=== PATIENT | female | born 1970 | race Caucasian/White ===

== ENCOUNTER 2019-03-25 13:19 | Emergency (ER) | payer MEDICARE, MEDICAID, SELFPAY ==
[2019-03-25 13:20] VITALS: BP 124/72; PULSE 97; RESP 18; TEMP 36.4; O2SAT 98; BMI 17.8
--- NOTE | 2019-03-25 13:32 | ED.VIS.GEN ---
History of Present Illness Chief Complaint: Back Informant: Patient Onset: Days Current Severity: Mild Narrative: The patient has history of lumbar back pain related to lumbar disc disease she has gone physical therapy lumbar back injections over the years to control her symptoms that have been generally well controlled until a few days ago when she indicates she sneezed or coughed and jerked her back and since then she is been having a discomfort involving the left lateral paralumbar musculature. She denies numbness weakness or paresthesias no bowel or bladder complaints she was told at one time that she may require lumbar back surgery but it could be risky causing damage to her health and showed she does not wish to be considered for lumbar back surgery, no fever no cough no other complaints Past Medical History - Allergies and Home Meds Allergies/Adverse Reactions: Allergies codeine Allergy (Verified 10/24/16 17:24) Shortness of breath gabapentin [From Neurontin] Allergy (Verified 10/24/16 17:24) Shortness of breath ibuprofen [From Advil] Allergy (Verified 10/24/16 17:24) Shortness of breath latex Allergy (Verified 10/24/16 17:24) Shortness of breath NSAIDS (Non-Steroidal Anti-Inflamma Allergy (Verified 10/24/16 17:24) Shortness of breath prednisone Allergy (Verified 10/24/16 17:24) Shortness of breath Primary Care Physician: Shanice Glaser MD [Primary Care Provider] - Past Medical History: - - As above Smoking Status: Current every day smoker Review of Systems General: Reports: - - Back pain only. Denies: Chills, Fever, Sweats Eyes: Denies: Visual changes - bilaterally, Diplopia ENT: Denies: Rhinorrhea, Sore throat Cardiovascular: Denies: Chest pain, Palpitations Respiratory: Denies: Dyspnea, Cough, Dyspnea on exertion Gastrointestinal: Denies: Abdominal pain, Nausea, Vomiting, Diarrhea, Melena, Hematochezia Genitourinary: Denies: Dysuria, Hematuria, Frequency Musculoskeletal: Denies: Back pain, Extremity Pain Skin: Denies: Rash, Wounds Neurological: Denies: Headache, Weakness, Numbness Physical Exam Vital Signs/Narrative: Vital Signs Temp Pulse Resp BP Pulse Ox 03/25/19 13:20 97.6 F L 97 18 124/72 H 98 General: Well nourished, Well developed, No Acute Distress Head: Normocephalic, Atraumatic Eyes: Perrl, EOMI ENT: Moist mucous membranes, No rhinorrhea Neck: Supple, Nontender Cardiovascular: Regular rate, Regular rhythm, No murmurs Respiratory: No distress, CTA bilaterally, Chest nontender Abdomen: Soft, Nontender, Nondistended, Normal bowel sounds Back: Nontender, Normal Inspection, - - Patient is a vague pain to the left paralumbar back musculature there is no midline pain there is no pain to the thoracic or C-spine she able to stand and walk without difficulty she can heel and toe raise and knee bend without difficulty there is no signs of cauda equina numbness weakness paresthesias there is no signs of neurovascular abnormality. Negative for: CVA tenderness, Spinal tenderness Extremities: Nontender, No edema Skin: Normal color, No rash Neurological: Alert, Oriented x3, Cranial nerves II-XII grossly intact, Normal Strength, Normal Sensation Psychological: Normal affect, Normal Mood Diagnostic/Tx/Re-eval - Medical Decision Making Given all the above we had a long conversation she indicates that when she has had this in the past Flexeril has helped she has multiple allergies and the only pain management she can take is Tylenol at this time the plan will be to start her on Flexeril she is [id number] Tylenol and follow-up with your outpatient providers for further management options and return for change in symptoms Home stable Final impression Left paralumbar back pain ED Disposition - Plan for ED Patient: Diagnosis: Lumbar back pain Instructions: BACK SPASM, No Trauma, Back Sprain/Strain Prescriptions: cycloBENZAPRine HCl [Flexeril] 10 mg PO TID PRN #20 tab PRN Reason: Muscle Spasm Prescription Printed Referrals: Shanice Glaser MD [Primary Care Provider] -
[2019-03-25 13:43] VITALS: RESP 16
== END 2019-03-25 13:55 | disposition home or self-care (01) ==
LOC: ED 13:51
PROVIDERS: Emergency Provider Emergency Medicine; Family Provider Internal Medicine; PCP Internal Medicine
DX: M54.5 Low back pain (principal); F17.200 Nicotine dependence, unspecified, uncomplicated
CPT/HCPCS: 99282

== ENCOUNTER 2022-05-27 17:19 | Outpatient (RCR) | payer MEDICARE, MEDICAID, SELFPAY ==
--- NOTE | 2022-05-28 08:42 | HP.OTEVAL ---
Patient's Visit Information JAYY GIVENS is a 52 year old F, referred to Occupational Therapy by Dr. Jovani Carballo MD, with a diagnosis of left IF mallet finger. Date of Evaluation: 05/27/22 Occupational Therapist: Blanche Blanca, LETICIAR/L, CHT - Subjective This 52 year arrives to OT with dx of left IF mallet finger- DOI about 8 weeks ago- states while pushing in a cleaning cloth in a Swiffer cleaning broom she felt a pop. pt states she started to get some pain at her PIPJ and decided to seek Dr. torres. Pt states she would like to increase the finger position so her finger tip is not so bent- pt states this does limit her ind. with ADls and IADls at this time. - Pain left IF 2 Pain Intensity Range: 3 - ROM DIP: right IF -10/55 left -25/55 ROM Comments: pt demo with positive mallet finger - Strength Strength Comments: will test later date - Sensation Sensation Comments: denies - Quick DASH-Disab of Arm,Shoulder& Hand Quick DASH Score: 43.1800 - Goals Goal:100% adherence to protocol: Yes Comment: mallet finger Goal:ROM equal to unaffected hand: Yes Comment: left DIP ext -5* or less Goal:No pain with affected hand use: Yes Goal:Full use of affected hand in daily activities including: Yes Comment: orthosis use Other Goal: pt will demo understanding of orthosis use for next 6-8 weeks by end of 1st session. pt will demo understanding of skin checks and change orthosis as to not compromise integrity of repair by end of 1st session. - Rehabilitation General Assessment: pt arrives possible 8 weeks from [facility] in need of skilled OT services2-4 visits to [facility]. custom orthosis (mallet finger). Today therapist ed. pt on custom orthosis use- use of Velcro and paper tape to increase stability of orthosis- pt going to try the Velcro strapping first- therapist ed. pt on proper edgardo, to change orthosis and skin care- therapist also ed. pt on PIP ROM with orthosis. pt demo understanding and agree to POC. Rehabilitation Potential: Questionable - Anticipated Interventions A/AAROM/PROM, Orthoses, Education re Diagnosis - Visit Plan Frequency: Every Other Week Duration: 6 Weeks General Plan: orthosis for 6 weeks. PIP ROM ex to prevent hyper ext at PIP TEXT: Thank you for the opportunity to evaluate your patient. For Medicare and Medicare HMO plans, please review the plan of care and approve it. It will need to be FAXED BACK to us at [phone] for Medicare purposes. Please let me know if there are questions or concerns regarding this plan of care. Physician Signature: Date:
--- NOTE | 2022-07-24 09:51 | HP.OT.NRP ---
JAYY GIVENS was seen in my office for initial evaluation on 05/27/22. The following Plan of Care was established for this patient: Initial Frequency: Every Other Week Initial Duration: 6 Weeks Anticipated Interventions: A/AAROM/PROM, Orthoses, Education re Diagnosis This patient was last seen in our office 05/27/22. Pertinent comments regarding their Occupational therapy will appear below: pt see for inital eval only- did not return for follow up visit and due to time lapse in services pt d/c. At this point I will be discontinuing this patient from occupational therapy. I would be happy to see this patient again in the future if found appropriate by the physician. Thank you! Blanche Blanca, OTR/L, CHT
== END 2022-05-27 19:00 | disposition home or self-care (01) ==
LOC: OT 17:19
PROVIDERS: PCP Internal Medicine; Referring Provider Orthopaedic Surgery; Visit Provider Orthopaedic Surgery
DX: M20.012 Mallet finger of left finger(s) (principal)
CPT/HCPCS: 97166

== ENCOUNTER 2023-10-19 16:28 | Emergency (ER) | payer MEDICARE, MEDICAID, SELFPAY ==
[2023-10-19 16:29] VITALS: BP 118/69; PULSE 83; RESP 18; TEMP 36.4; O2SAT 99; BMI 19.3
--- NOTE | 2023-10-19 17:11 | EKG12_ITS ---
Test Reason : SOB Blood Pressure : / mmHG Vent. Rate : 079 BPM Atrial Rate : 079 BPM P-R Int : 136 ms QRS Dur : 080 ms QT Int : 374 ms P-R-T Axes : 094 076 069 degrees QTc Int : 428 ms Normal sinus rhythm Normal ECG Confirmed by ZOE ANDRES MD ([id number]), sports editor KYLE COUGHLIN ([id number]) on 10/20/2023 9:23:18 AM Referred By: MIRIAM Confirmed By:ZOE ANDRES MD
--- NOTE | 2023-10-19 17:19 | ED.VIS.DYS ---
HPI History of Present Illness Chief Complaint: Shortness of Breath Narrative Narrative: 53-year-old female with history of anxiety on buspirone 15 mg p.o. 3 times daily presenting with some chest tightness and shortness of breath which started this morning at about 12 to 12:30 AM. Patient states she did albuterol treatment and would like to see about an hour and a half later. She states she woke up again and feeling like she is anxious. She states that she cannot. She complains of some mild chest tightness. Denies any cardiac history. Patient denies fever, chills, sweats. Patient denies risk factors for DVT/PE. No history. PE Risk Factors: Negative for Cancer, OCP + Smoking + > 35, Prior DVT or PE, Recent immobilization, Recent surgery or Recent travel [facility] Home Medications budesonide-formoterol HFA 160 mcg-4.5 mcg/actuation aerosol inhaler 1 inhaler inhalation DAILY 03/25/19 [History Last Taken Unknown] buspirone 15 mg tablet 15 mg PO TID 03/25/19 [History Last Taken Unknown] cyclobenzaprine 10 mg tablet 10 mg PO TID PRN Muscle Spasm #20 tabs 03/25/19 [Rx Last Taken Unknown] Allergy/AdvReac Type Severity Reaction Status Date / Time fluticasone Allergy Severe Anaphylaxis Verified 10/19/23 16:34 [From Advair Diskus] salmeterol Allergy Severe Anaphylaxis Verified 10/19/23 16:34 [From Advair Diskus] codeine Allergy Shortness Verified 10/19/23 16:34 of breath gabapentin [From Neurontin] Allergy Shortness Verified 10/19/23 16:34 of breath ibuprofen [From Advil] Allergy Shortness Verified 10/19/23 16:34 of breath latex Allergy Shortness Verified 10/19/23 16:34 of breath NSAIDS (Non-Steroidal Allergy Shortness Verified 10/19/23 16:34 Anti-Inflamma of breath prednisone Allergy Shortness Verified 10/19/23 16:34 of breath Social History Smoking Status: Current every day smoker tobacco type: cigarettes ROS ROS ED Constitutional Constitutional ED: Denies chills, fever(s) or sweats Eyes Eyes: Denies blurry vision or change in vision ENT ENT ED: Denies ear pain or sore throat Cardiovascular Cardiovascular: Reports chest pain; Denies palpitations or racing heartbeat Respiratory/Chest Respiratory/Chest: Reports dyspnea; Denies cough or sputum Gastrointestinal Gastrointestinal: Denies abdominal pain, constipation, diarrhea, nausea or vomiting Genitourinary Genitourinary ED: Denies dysuria, hematuria or urinary frequency Musculoskeletal Musculoskeletal: Denies arthralgias, myalgias or neck pain Integumentary Denies abscess, Abrasions or rash Neurologic Neurologic: Denies headache(s), paresthesias or weakness Psychiatric Psychiatric: Denies anxiety, depression, suicidal ideation or suicidal thoughts Endocrine Endocrinology: Denies polydipsia or polyuria EXAM Physical Exam Const Vital Signs: 10/19/23 16:29 10/19/23 16:29 10/19/23 17:34 Temperature 97.6 F L Temperature Source Temporal Pulse Rate 83 Respiratory Rate 18 Respiratory Effort Normal Non-Labored Respiratory Depth Normal Respiratory Pattern Normal Blood Pressure 118/69 Blood Pressure Mean 85 Pulse Ox 99 Oxygen Delivery Method Room Air Room Air Room Air 10/19/23 17:34 10/19/23 18:00 10/19/23 18:46 Temperature 97.4 F L Temperature Source Pulse Rate 80 81 75 Respiratory Rate 20 H 16 18 Respiratory Effort Respiratory Depth Respiratory Pattern Blood Pressure 118/73 114/63 104/83 H Blood Pressure Mean 88 80 90 Pulse Ox 99 100 99 Oxygen Delivery Method Room Air Room Air Positive well nourished General Appearance ED: NAD; Negative for pallor HEENT Reports moist mucous membranes Eyes PERRL and EOMs intact bilaterally Neck no lymphadenopathy Resp normal respiratory effort Auscultation: Negative for rales, rhonchi or wheezes Cardio regular rate and regular rhythm GI non-tender and non-distended Neuro oriented x3 and CN's II-XII intact bilaterally Sensorium / Orientation: alert Motor Exam: strength 5/5 throughout Psych mental status grossly normal Attitude: No agitated Mood & Affect: Negative for anxious or tearful Skin General Skin Exam: Negative for jaundice or pallor MDM MDM MDM Narrative Medical decision making narrative: Patient presenting with shortness of breath and chest tightness. She initially thought it was anxiety but is unable to take it. Patient with no cardiac history. Differential includes ACS, pneumonia, anxiety, dehydration, anemia, electrolyte normalities, COPD exacerbation. Patient does state that she was put back on her budesonide formoterol inhaler about 2 weeks ago but states she had been on this in the past. She has been taking this twice a day. CBC shows no leukocytosis with a white blood cell count of 6.0. Hemoglobin 12.9. Platelets 214. BMP shows normal renal function electrolytes. High-sensitivity troponin is 5. EKG on my interpretation shows a sinus rhythm at 79 bpm without sign ischemic change or ectopy. Chest x-ray my interpretation is no acute process. Radiology interprets this and agrees. Given patient has had this discomfort since midnight and it has been about 18 hours and her troponin is negative but no believe she is a delta troponin. She is PERC negative. I have low suspicion for PE. Her labs are all that was normal. She does state that she is concerned it might be anxiety and I will have her follow-up with her PCP for this. She has buspirone that she takes on a regular basis. Impression: 1. Chest pain 2. History of anxiety Lab Data Labs: Laboratory Results - last 24 hr 10/19/23 17:30 WBC 6.0 RBC 3.93 L Hgb 12.9 Hct 39.8 MCV 101.3 H MCH 32.8 H MCHC 32.4 RDW Std Deviation 44.0 H RDW Coeff of Bruce 11.9 Plt Count 214 MPV 9.1 Immature Gran % (Auto) 0.300 Neut % (Auto) 66.2 Lymph % (Auto) 22.3 Isabella % (Auto) 7.9 Eos % (Auto) 2.8 Baso % (Auto) 0.5 Absolute Neuts (auto) 4.0 Absolute Lymphs (auto) 1.33 Nucleated RBC % 0 Sodium 135 L Potassium 3.7 Chloride 105 Carbon Dioxide 26.0 Anion Gap 4 L BUN 6 L Creatinine 0.79 Estim Creat Clear Calc 72.54 Est GFR (MDRD) Af Amer 97 Est GFR (MDRD) Non-Af 80 BUN/Creatinine Ratio 7.6 L Glucose 108 H Calcium 8.8 Troponin I High Sens 5 Radiography Diagnostic Testing: Clinical Impression(s) from Imaging Studies Chest X-Ray 10/19/23 17:45 IMPRESSION: No radiographic evidence of acute cardiopulmonary disease. Electronically Signed: Kaiser Loera MD at 18:15 EDT , Discharge Plan Triage Chief Complaint: Shortness of Breath ED Provider: Willard Bonilla Dx/Rx/DC Orders Instructions: ED Anxiety Reaction, ED Chest Pain, Noncardiac Prescriptions: No Action cyclobenzaprine 10 MG tablet 10 mg PO TID PRN (Reason: Muscle Spasm) Qty: 20 0RF buspirone 15 MG tablet 15 mg PO TID Patient Comments: TAKE 1 TABLET BY MOUTH THREE TIMES A DAY budesonide-formoterol 1 INHALER inhaler 1 inhaler inhalation DAILY Patient Comments: INHALE 1 PUFF BY MOUTH INSTRUCTED TWICE DAILY. Primary Care Provider: Shanice Glaser Referrals: Shanice Glaser MD [Primary Care Provider] - Disposition Disposition: Home, Self Care Discharge Date/Time: 10/19/23 18:49
[2023-10-19 17:34] VITALS: BP 118/73; PULSE 80; RESP 20; O2SAT 99
--- NOTE | 2023-10-19 17:45 | RAD_ITS ---
EXAM: XR CHEST, 1 VIEW CLINICAL INDICATION: chest pain TECHNIQUE: Frontal view of the chest. COMPARISON: No relevant prior studies available. FINDINGS: LUNGS AND PLEURAL SPACES: Unremarkable. No consolidation or edema. No pneumothorax. No effusion. HEART: Unremarkable. Cardiac silhouette not enlarged. MEDIASTINUM: Central airways and mediastinal contour are unremarkable. BONES/JOINTS: Unremarkable. No acute fracture. SOFT TISSUES: Unremarkable. RAD/Chest 1 View (Portable) IMPRESSION: No radiographic evidence of acute cardiopulmonary disease. Electronically Signed: Kaiser Loera MD at 18:15 EDT ,
[2023-10-19 17:46] LABS: Absolute Lymphocyte Count 1.33 X10^3/uL (0.83-4.51); Basophil# 0.03 X10^3/uL; Basophil% 0.5 % (0-1); Eosinophil# 0.17 X10^3/uL; Eosinophils% 2.8 % (0-5); Hematocrit 39.8 % (37-47); Hemoglobin 12.9 g/dL (12.0-15.0); Lymphocyte # 1.33 X10^3/ul (0.83-4.51); Lymphocyte % 22.3 % (19-41); Mean Corp Hgb Conc 32.4 g/dL (32-36); Mean Corpuscular Hgb 32.8 pg (27.0-32.0); Mean Corpuscular Volume 101.3 fL (81-99); Mean Platelet Vol. 9.1 fl (6.2-12.0); Monocyte# 0.47 X10^3/uL; Monocyte% 7.9 % (0-10); NRBC Flagged by Analyzer 0 % (0-5); Neutrophil # 3.95 X10^3/uL (2.7-7.7); Neutrophil % 66.2 % (47-70); Platelet Count 214 K/mm3 (150-450); RBC Distribution Width CV 11.9 % (11.6-14.6); Red Blood Count 3.93 M/mm3 (4.2-5.4)
[2023-10-19 18:00] VITALS: BP 114/63; PULSE 81; RESP 16; O2SAT 100
[2023-10-19 18:19] LABS: Anion Gap 4 (5-15); BUN 6 mg/dL (7-18); BUN/Creat Ratio 7.6 RATIO (10-20); Calcium,Total 8.8 mg/dL (8.5-10.1); Chloride 105 mmol/L (98-107); Creatinine, Serum 0.79 mg/dL (0.55-1.02); EST Glomerular Filtration Rate 80 mL/min (>60); Est Glom Filt Rate - Afr Amer 97 mL/min (>60); Estimated Creatinine Clearance 72.54 ml/min; Glucose 108 mg/dL (74-106); Potassium 3.7 mmol/L (3.5-5.1); Sodium Level 135 mmol/L (136-145); Troponin-I HS 5 pg/mL (3.0-54.0)
[2023-10-19 18:46] VITALS: BP 104/83; PULSE 75; RESP 18; TEMP 36.3; O2SAT 99
== END 2023-10-19 18:49 | disposition home or self-care (01) ==
PROVIDERS: Emergency Provider Student in an Organized Health Care Education/Training Program; PCP Internal Medicine; Visit Provider Student in an Organized Health Care Education/Training Program
DX: R07.9 Chest pain, unspecified (principal); F17.210 Nicotine dependence, cigarettes, uncomplicated; F41.9 Anxiety disorder, unspecified; R06.02 Shortness of breath; Z79.899 Other long term (current) drug therapy
CPT/HCPCS: 71045; 80048; 84484; 85025; 93005; 99283; A4216

== ENCOUNTER 2024-07-04 01:50 | Inpatient (IN) | payer MEDICARE, MEDICAID, SELFPAY ==
[2024-07-04] VITALS (9 sets, daily range): BP systolic 111–136; BP diastolic 65–79; PULSE 67–94; RESP 16–18; TEMP 36.4–36.9; O2SAT 94–99; BMI 18.1; BMI 16.6
--- NOTE | 2024-07-04 02:08 | CT_ITS ---
STUDY: CT ABDOMEN AND PELVIS WITH CONTRAST REASON FOR EXAM: Female, 54 years old patient with abdominal pain. RADIATION DOSAGE (If Supplied By Facility): CTDIvol = ( 8.77 ) mGy, DLP = ( 346.80 ) mGycm TECHNIQUE: Transaxial images were obtained from the dome of the diaphragm to the symphysis pubis without oral contrast. 100 mL of IV Isovue-370 was administered. Sagittal and coronal images were reconstructed. Individualized dose optimization techniques were used for this CT. COMPARISON: CT of abdomen and pelvis dated January 29, 2013. FINDINGS: There are small lucencies at the lung bases suggesting mild emphysema. There is no obvious airspace consolidation or pleural effusions. The visualized portions of the heart are within normal limits. Normal liver. Normal gallbladder and extrahepatic biliary system. Normal spleen. There are pancreatic calcifications in the distribution of the ducts consistent with chronic pancreatitis. Normal bilateral adrenal glands. Normal right kidney. Normal left kidney. Normal visualized stomach. There is no obvious dilated bowel, ascites or pneumoperitoneum. Small bowel has a grossly normal appearance. There is stool and/or gas visible in the colon. There is non-visualization of the appendix. There is multifocal atherosclerotic calcification of the abdominal aorta, without a demonstrated aneurysm. Normal inferior vena cava. Normal retroperitoneum. Normal urinary bladder. There is absence of the uterus consistent with a prior hysterectomy. Normal abdominal wall. There is degenerative disc disease at L4-5 and L5-S1 with disc space narrowing and vacuum disc phenomenon. CT/Abdomen/Pelvis W IV Cont ONLY IMPRESSION: 1. There is no CT evidence of acute intra-abdominal disease. 2. Sequela of chronic pancreatitis. Electronically Signed: Mary Roper MD at 4:10 EST ,
[2024-07-04] MEDS: 0.9% Normal Saline (1000mL) 1,000 ML 999 ML IV (02:17)
[2024-07-04] MEDS: Ondansetron 4 MG/2 ML Vial IV (02:17)
[2024-07-04 02:18] LABS: Absolute Lymphocyte Count 1.48 X10^3/uL (0.83-4.51); Absolute Neutrophil Count 5.8 X10^3/uL (2.0-7.7); Basophil# 0.03 X10^3/uL; Basophil% 0.4 % (0-1); Eosinophil# 0.39 X10^3/uL; Eosinophils% 4.8 % (0-5); Hematocrit 38.2 % (37-47); Hemoglobin 12.4 g/dL (12.0-15.0); Lymphocyte # 1.48 X10^3/ul (0.83-4.51); Mean Corp Hgb Conc 32.5 g/dL (32-36); Mean Corpuscular Hgb 33.7 pg (27.0-32.0); Mean Corpuscular Volume 103.8 fL (81-99); Mean Platelet Vol. 9.4 fl (6.2-12.0); Monocyte# 0.51 X10^3/uL; Monocyte% 6.2 % (0-10); NRBC Flagged by Analyzer 0 % (0-5); Neutrophil # 5.79 X10^3/uL (2.7-7.7); Neutrophil % 70.5 % (47-70); Platelet Count 214 K/mm3 (150-450); RBC Distribution Width CV 12.2 % (11.6-14.6); RBC Distribution Width SD 46.5 fl (35.1-43.9); Red Blood Count 3.68 M/mm3 (4.2-5.4); White Blood Count 8.2 K/mm3 (4.4-11.0)
[2024-07-04] MEDS: Mag Hydrox/Al Hydrox/Simeth 30 ML UDC PO (02:18)
[2024-07-04] MEDS: Lidocaine 2% Viscous15 ML UDC 15 ML PO (02:18)
--- NOTE | 2024-07-04 02:25 | EX.ED.DYSGE1 ---
HPI History of Present Illness Chief Complaint: Abd Pain Informant: patient and spouse/S.O. Narrative Narrative: Patient is a 54-year-old female with past medical history of COPD and previous surgical history of hysterectomy. She states that around 3 PM today she noticed some pain in the midepigastric region. She states this a cramping pain. She denies any associated nausea vomiting diarrhea or dysuria. She states no one else at home has been sick. She reports she has been waiting hours for the symptoms to improve/resolve but they have not done so and secondary to this she comes in for evaluation Patient denies any alcohol use she denies any history of daily NSAID use and denies any previous diagnosis of gallbladder dysfunction or gastritis. [facility] Medical History COPD (chronic obstructive pulmonary disease) Home Medications ?Medication ?Instructions ?Recorded ?Last Taken ?Type budesonide-formoterol HFA 160 1 inhaler inhalation DAILY 03/25/19 Unknown History mcg-4.5 mcg/actuation aerosol inhaler buspirone 15 mg tablet 15 mg PO TID 03/25/19 Unknown History albuterol sulfate 90 mcg/actuation 2 puff inhalation Q4H PRN PRN 07/04/24 Unknown History aerosol inhaler bronchospasm, sob, wheezing amitriptyline 25 mg tablet 25 mg PO QHS 07/04/24 Unknown History lorazepam 0.5 mg tablet 0.5 mg PO DAILY PRN anxiety 07/04/24 Unknown History Allergy/AdvReac Type Severity Reaction Status Date / Time fluticasone (From Advair Allergy Severe Anaphylaxis Verified 07/04/24 01:54 Diskus) salmeterol (From Advair Allergy Severe Anaphylaxis Verified 07/04/24 01:54 Diskus) codeine Allergy Shortness Verified 07/04/24 01:54 of breath gabapentin (From Neurontin) Allergy Shortness Verified 07/04/24 01:54 of breath ibuprofen (From Advil) Allergy Shortness Verified 07/04/24 01:54 of breath latex Allergy Shortness Verified 07/04/24 01:54 of breath NSAIDS (Non-Steroidal Allergy Shortness Verified 07/04/24 01:54 Anti-Inflamma of breath prednisone Allergy Shortness Verified 07/04/24 01:54 of breath Surgical History (Updated 07/04/24 @ 01:55 by Antionette Peres) H/O: hysterectomy Social History Smoking Status: Current every day smoker tobacco type: cigarettes ROS ROS ED Constitutional Constitutional ED: Denies chills or fever(s) Eyes Eyes: Denies blurry vision or change in vision ENT ENT ED: Denies sore throat Cardiovascular Cardiovascular: Denies chest pain Respiratory/Chest Respiratory/Chest: Denies cough or dyspnea Gastrointestinal Gastrointestinal: Reports abdominal pain; Denies constipation, diarrhea, nausea or vomiting Genitourinary Genitourinary ED: Denies dysuria or hematuria Musculoskeletal Musculoskeletal: Denies back pain Integumentary Denies rash Neurologic Neurologic: Denies headache(s) Psychiatric Psychiatric: Reports anxiety Hematologic/Lymphatic Hematologic/Lymphatic: Denies easy bleeding or easy bruising EXAM Physical Exam Const Vital Signs: 07/04/24 01:51 07/04/24 01:52 07/04/24 03:51 Temperature 97.6 F L Temperature Source Oral Pulse Rate 86 94 Respiratory Rate 16 18 Blood Pressure 136/68 H 122/79 H Blood Pressure Mean 90 93 Pulse Ox 98 94 Oxygen Delivery Method Room Air Room Air Room Air Positive well nourished and well developed General Appearance ED: well developed; Negative for pallor HEENT HEENT Narrative: No tongue or lip swelling no oral lesions no airway edema or compromise No secondary findings in the posterior pharynx to suggest Eyes PERRL and EOMs intact bilaterally General Eye ED: Negative for scleral icterus Neck supple Neck Narrative: No nuchal rigidity or meningeal sign Resp normal respiratory effort and clear to auscultation bilaterally Cardio regular rate and regular rhythm Rate: other Other Details: Heart is regular rate and rhythm without murmurs rubs or gallop Radial and carotid pulses are equal and symmetric GI non-distended and no masses GI Narrative: Abdomen is soft and nondistended with slightly hypoactive bowel sounds. There is pain with palpation in the midepigastric region without voluntary guarding or rigidity. No pulsatile mass or fluid wave. No hernia noted. No increased tympany. Auscultation: hypoactive bowel sounds Palpation: soft Back/Spine no CVA tenderness Extremity normal to inspection Neuro oriented x3, CN's II-XII intact bilaterally and no sensory deficits noted Sensorium / Orientation: alert Motor Exam: strength 5/5 throughout Psych mental status grossly normal Skin no rashes or lesions noted General Skin Exam: Negative for jaundice or pallor MDM MDM MDM Narrative Medical decision making narrative: Patient arrived to the ER with stable vitals. She reported pain in the midepigastric region and differential diagnosis is for acute pancreatitis versus gastritis versus gallstone pancreatitis versus colitis versus diverticulitis versus atypical presentation for UTI. Secondary to this basic labs and a urine sample were obtained. Urine shows no sign of infection and blood work reveals normal liver enzymes going against a biliary issue. Her lipase however was greater than 5000 which would correlate with acute pancreatitis. Secondary to this a CT scan was obtained to try and elicit the cause of the pancreatic inflammation. CT scan showed calcifications of the pancreas consistent with a sequela of chronic pancreatitis. However the patient reports she has never had pancreatitis in the past and she denies any high risk behaviors such as recurrent alcohol use/abuse and also denies any history of gallbladder issues which would also correlate with her normal liver enzymes today. Therefore based on her new diagnosis of pancreatitis without an obvious cause for it I do feel she should be kept in the hospital for further workup. The case was discussed with the hospitalist who agrees that as this is new onset without obvious cause it warrants further investigation and therefore she will be admitted to their service with planned GI consultation. The plan of care was discussed with the patient who is agreeable to it History & Record Review Discussion w/independent historian: Patient and Significant other Lab Data Attestation: I reviewed the patient's lab results. Labs: Laboratory Results - last 24 hr 07/04/24 07/04/24 02:11 03:35 WBC 8.2 RBC 3.68 L Hgb 12.4 Hct 38.2 MCV 103.8 H MCH 33.7 H MCHC 32.5 RDW Std Deviation 46.5 H RDW Coeff of Bruce 12.2 Plt Count 214 MPV 9.4 Immature Gran % (Auto) 0.100 Neut % (Auto) 70.5 H Lymph % (Auto) 18.0 L [place] % (Auto) 6.2 Eos % (Auto) 4.8 Baso % (Auto) 0.4 Absolute Neuts (auto) 5.8 Absolute Lymphs (auto) 1.48 Nucleated RBC % 0 Sodium 138 Potassium 3.8 Chloride 106 Carbon Dioxide 28.0 Anion Gap 3 L BUN 6 L Creatinine 0.86 Estim Creat Clear Calc 62.22 Est GFR (MDRD) Af Amer 88 Est GFR (MDRD) Non-Af 73 BUN/Creatinine Ratio 6.9 L Glucose 129 H Calcium 8.7 Total Bilirubin 0.40 Direct Bilirubin 0.13 AST 23 ALT 21 Alkaline Phosphatase 120 H Total Protein 6.8 Albumin 3.7 Globulin 3.1 Lipase > 5000 H Urine Color Yellow Urine Clarity Clear Urine pH 7.0 Ur Specific [place] 1.010 Urine Protein Negative Urine Glucose (UA) Normal Urine Ketones Negative Urine Occult Blood 10 H Urine Nitrite Negative Urine Bilirubin Negative Urine Urobilinogen Normal Ur Leukocyte Esterase 100 H Urine RBC 0 SEEN Urine WBC 0-5 SEEN Ur Squamous Epith Cells 0 SEEN Urine Bacteria RARE Urine Mucus 0 SEEN Radiography Diagnostic Testing: Clinical Impression(s) from Imaging Studies Abdomen/Pelvis CT 07/04/24 02:08 IMPRESSION: 1. There is no CT evidence of acute intra-abdominal disease. 2. Sequela of chronic pancreatitis. Electronically Signed: Mary Roper MD at 4:10 EST Reading Location ID and State: [facility] / [place] , Service support , Discharge Plan Triage Chief Complaint: Abd Pain ED Provider: Simone Mancini Dx/Rx/DC Orders Clinical Impression: Acute pancreatitis, COPD (chronic obstructive pulmonary disease), Anxiety Prescriptions: No Action buspirone 15 MG tablet 15 mg PO TID Patient Comments: TAKE 1 TABLET BY MOUTH THREE TIMES A DAY budesonide-formoterol 1 INHALER inhaler 1 inhaler inhalation DAILY Patient Comments: INHALE 1 PUFF BY MOUTH INSTRUCTED TWICE DAILY. albuterol sulfate 90 mcg/actuation HFA aerosol inhaler 2 puff INHALATION Q4H PRN PRN (Reason: bronchospasm, sob, wheezing) amitriptyline 25 mg tablet 25 mg PO QHS lorazepam 0.5 mg tablet 0.5 mg PO DAILY PRN (Reason: anxiety) Primary Care Provider: Shanice Glaser Referrals: Shanice Glaser MD [Primary Care Provider] - Print Language: Azeri Disposition Disposition: Acute Care [facility]
[2024-07-04 03:13] LABS: AST(SGOT) 23 U/L (15-37); Alanine Aminotransfer ALT/SGPT 21 U/L (13-56); Albumin, Serum 3.7 g/dL (3.2-5.0); Alkaline Phosphatase 120 U/L (45-117); Anion Gap 3 (5-15); BUN 6 mg/dL (7-18); BUN/Creat Ratio 6.9 RATIO (10-20); Bilirubin, Direct 0.13 mg/dL (0.00-0.30); Calcium,Total 8.7 mg/dL (8.5-10.1); Chloride 106 mmol/L (98-107); Creatinine, Serum 0.86 mg/dL (0.55-1.02); EST Glomerular Filtration Rate 73 mL/min (>60); Est Glom Filt Rate - Afr Amer 88 mL/min (>60); Estimated Creatinine Clearance 62.22 ml/min; Globulin 3.1 g/dL (2.2-4.2); Glucose 129 mg/dL (74-106); Lipase > 5000 U/L (13-75); Potassium 3.8 mmol/L (3.5-5.1); Protein, Total 6.8 g/dL (6.4-8.2); Sodium Level 138 mmol/L (136-145)
[2024-07-04] MEDS: LORazepam 2 MG/ML Syringe 1 MG IV (03:38)
[2024-07-04 03:45] LABS: Mucous, Urine 0 SEEN /hpf (<or=2+); Red Blood Cells-Urine 0 SEEN /hpf (0-5); Squamous Epithelial Cells - UA 0 SEEN /hpf (5-10)
[2024-07-04 04:07] LABS: Color, Urine Yellow (Yellow); Glucose, Dipstick Normal (Normal); Ketone-Dipstick Negative (Negative); Leukocyte Esterase-Dipstick 100 /ul (Negative); Nitrite-Dipstick Negative (Negative); Occult Blood-Urine 10 /ul (Negative); Protein-Dipstick Negative (Negative); Urine Bilirubin Dipstick Negative (Negative); Urine Clarity Clear (Clear); Urine Urobilinogen Normal (Normal)
[2024-07-04 04:14] LABS: Bacteria RARE /hpf (None Seen); White Blood Cells 0-5 SEEN /hpf (0-5)
--- NOTE | 2024-07-04 04:20 | HP.PCM.HOS_ITS ---
[facility] - General General Date of Admission: 07/04/24 Date of Service: 07/04/24 Chief Complaint: Abdominal Pain. HPI Narrative JAYY GIVENS, is a 54 F with a past medical history of chronic tobacco abuse; with subsequent COPD, depression with anxiety; on buspirone and prn lorazepam, history of hysterectomy, listed allergy to Advair (anaphylaxis), listed allergy to codeine (SOB), listed allergy to gabapentin (SOB), listed allergy to NSAID's and prednisone (SOB) and OA who presents to [facility] ER complaining of abdominal pain. Mrs. Givens reports her symptoms began approximately 3:00 PM yesterday when she suddenly developed abdominal pain that was [id number], cramping and with nothing making the pain better or worse. At first she decided to wait a few hours to see if her symptoms would resolve spontaneously - but then when they failed to improve she decided to come in for further evaluation and treatment. She denies a personal history of pancreatitis or a family history of pancreatic cancer/disease, history of hypertriglyceridemia, history significant EtOH use, gallbladder disease including gallstones and she also denies NSAID use, new medications or recent abdominal trauma. There was no report of associated fever, chills, nausea, vomiting, diarrhea, constipation, blood in stools, dysuria or headache. In the ER she was noted to have CT evidence of Chronic Pancreatitis with a confirmatory serum lipase of >5K and she was then admitted to the general medical floor for ongoing care for a stay that is expected to extend beyond 2 midnights. [facility] Medical History COPD (chronic obstructive pulmonary disease) Home Medications ?Medication ?Instructions ?Recorded ?Last Taken ?Type budesonide-formoterol HFA 160 1 inhaler inhalation DAILY 03/25/19 Unknown History mcg-4.5 mcg/actuation aerosol inhaler buspirone 15 mg tablet 15 mg PO TID 03/25/19 Unknown History albuterol sulfate 90 mcg/actuation 2 puff inhalation Q4H PRN PRN 07/04/24 Unknown History aerosol inhaler bronchospasm, sob, wheezing amitriptyline 25 mg tablet 25 mg PO QHS 07/04/24 Unknown History lorazepam 0.5 mg tablet 0.5 mg PO DAILY PRN anxiety 07/04/24 Unknown History Allergy/AdvReac Type Severity Reaction Status Date / Time fluticasone (From Advair Allergy Severe Anaphylaxis Verified 07/04/24 01:54 Diskus) salmeterol (From Advair Allergy Severe Anaphylaxis Verified 07/04/24 01:54 Diskus) codeine Allergy Shortness Verified 07/04/24 01:54 of breath gabapentin (From Neurontin) Allergy Shortness Verified 07/04/24 01:54 of breath ibuprofen (From Advil) Allergy Shortness Verified 07/04/24 01:54 of breath latex Allergy Shortness Verified 07/04/24 01:54 of breath NSAIDS (Non-Steroidal Allergy Shortness Verified 07/04/24 01:54 Anti-Inflamma of breath prednisone Allergy Shortness Verified 07/04/24 01:54 of breath Surgical History H/O: hysterectomy Social History Smoking Status: Current every day smoker tobacco type: cigarettes ROS ROS Narrative Review of Systems: Constitutional: Patient denies fever or chills. Eyes: Patient denies blurry vision or discharge from eyes. ENT: Patient denies runny nose, sore throat or ear pain. Resp: Patient denies shortness of breath or cough. CV: Patient denies chest pain, palpitations or heart racing. GI: Patient admits to cramping abdominal pain focused primarily in epigastrium as per HPI. She denies nausea, vomiting, diarrhea or constipation. : Patient denies dysuria or hematuria. MSK: Patient denies arthralgias or myalgias. Skin: Patient denies rash, abscess or jaundice. Psych: Patient denies anxiety but she denies SI or HI. Neuro: Patient denies headache, paresthesias or focal neurologic deficits. Allergy: Patient denies lip swelling, tongue swelling or urticaria. Hematology: Patient denies easy bleeding or easy bruisability. Endocrinology: Patient denies polyuria, polydipsia or polyphagia. 14 point review of systems otherwise negative except for positives noted above in HPI. Vital Signs Vital Signs Vital Signs: 07/04/24 01:51 07/04/24 01:52 Temperature 97.6 F L Temperature Source Oral Pulse Rate 86 Respiratory Rate 16 Blood Pressure 136/68 H Blood Pressure Mean 90 Pulse Ox 98 Oxygen Delivery Method Room Air Room Air Weight Weight: 116 lb 2.938 oz Body Mass Index (BMI) 18.1 Physical Exam Const alert, oriented x3 and average body habitus Constitutional Narrative: Mild distress noted with chronically ill appearance older than her stated age. General Appearance: cooperative HEENT normocephalic, head/scalp atraumatic, hearing grossly normal bilaterally and moist oral mucous membranes Eyes PERRL and EOMs intact bilaterally Neck no lymphadenopathy and supple Resp normal respiratory effort, no retractions, no use of accessory muscles and clear to auscultation bilaterally Cardio regular rate and regular rhythm GI GI Narrative: Patient has tenderness to palpation in the epigastrium without voluntary guarding or rigidity. Auscultation: hypoactive bowel sounds Extremity normal to inspection, full ROM and no clubbing, cyanosis or edema Skin Skin Narrative: Patient has no evidence of rash, abscess or jaundice. Neuro oriented x3, CN's II-XII intact bilaterally, moves all extremities and no focal motor deficits Sensorium / Orientation: awake, alert, oriented to person, oriented to place and oriented to time Speech: speech normal Psych Mood & Affect: anxious Results Medical Records Data Attestation: I reviewed the patient's medical records Lab / Micro Data Attestation: I reviewed the patient's lab results. 07/04/24 02:11 07/04/24 02:11 Labs: Laboratory Results - last 24 hr 07/04/24 02:11: WBC 8.2, RBC 3.68 L, Hgb 12.4, Hct 38.2, MCV 103.8 H, MCH 33.7 H , MCHC 32.5, RDW Std Deviation 46.5 H, RDW Coeff of Bruce 12.2, Plt Count 214, MPV 9.4, Immature Gran % (Auto) 0.100, Neut % (Auto) 70.5 H, Lymph % (Auto) 18.0 L, [place] % (Auto) 6.2, Eos % (Auto) 4.8, Baso % (Auto) 0.4, Absolute Neuts (auto) 5.8, Absolute Lymphs (auto) 1.48, Nucleated RBC % 0, Sodium 138, Potassium 3.8, Chloride 106, Carbon Dioxide 28.0, Anion Gap 3 L, BUN 6 L, Creatinine 0.86, Estim Creat Clear Calc 62.22, Est GFR (MDRD) Af Amer 88, Est GFR (MDRD) Non-Af 73, BUN/Creatinine Ratio 6.9 L, Glucose 129 H, Calcium 8.7, Total Bilirubin 0.40, Direct Bilirubin 0.13, AST 23, ALT 21, Alkaline Phosphatase 120 H, Total Protein 6.8, Albumin 3.7, Globulin 3.1, Lipase > 5000 H 07/04/24 03:35: Urine Color Yellow, Urine Clarity Clear, Urine pH 7.0, Ur Specific [place] 1.010, Urine Protein Negative, Urine Glucose (UA) Normal, Urine Ketones Negative, Urine Occult Blood 10 H, Urine Nitrite Negative, Urine Bilirubin Negative, Urine Urobilinogen Normal, Ur Leukocyte Esterase 100 H, Urine RBC 0 SEEN, Urine WBC 0-5 SEEN, Ur Squamous Epith Cells 0 SEEN, Urine Bacteria RARE, Urine Mucus 0 SEEN Imaging Radiology Impression Abdomen/Pelvis CT 07/04/24 02:08 IMPRESSION: 1. There is no CT evidence of acute intra-abdominal disease. 2. Sequela of chronic pancreatitis. Electronically Signed: Mary Roper MD at 4:10 EST Reading Location ID and State: [address] [place] [address] , Service support , Assessment & Plan Assessment/Plan (1) Pancreatitis: QUALIFIERS: Chronicity: chronic Pancreatitis type: unspecified pancreatitis type Qualified Code(s): K86.1 - Other chronic pancreatitis (2) Tobacco abuse: (3) COPD (chronic obstructive pulmonary disease): QUALIFIERS: COPD type: unspecified COPD Qualified Code(s): J44.9 - Chronic obstructive pulmonary disease, unspecified (4) Depression: QUALIFIERS: Depression Type: unspecified Qualified Code(s): F32.A - Depression, unspecified (5) Anxiety: PLAN: Plan 1. CT evidence of Chronic Pancreatitis confirmatory serum lipase of >5K present on admission with patient denying a history of pancreatitis - Admit to general medical floor. Keep strict n.p.o. and give IV Zofran as needed nausea or vomiting with Phenergan IM as needed for breakthrough nausea and vomiting. Start Protonix 40 mg IV daily. Patient refused morphine in ER due to concerns about potential allergies and side effects but she responded well to Ativan IV which seemed to control her symptoms. She has a listed allergy to NSAIDs and codeine which severely restricted potential choices for IV pain control. Since the etiology of her pancreatitis is currently unclear we will check Lipid Profile, CA 19-9, UDS and DANYA to more fully assess for potential underlying causes. Finally, we will consult gastroenterology to see this patient on-rounds in the AM for further recommendations with help appreciated in advance. 2. Chronic tobacco abuse; with subsequent COPD complicating #1 - Noted with patient currently having no acute signs of flare. Continue inhalers and nebulizer as previous. Tobacco cessation will be strongly encouraged with nicotine patch offered to control cravings. 3. Depression with anxiety; on buspirone and prn lorazepam compounding #1 & #2 - Restart buspirone patient is able to tolerate p.o. intake. Give lorazepam IV as needed for breakthrough symptoms. 4. History of hysterectomy - Noted. 5. Listed allergy to Advair (anaphylaxis) - Noted. 6. Listed allergy to codeine (SOB) - Noted. 7. Listed allergy to gabapentin (SOB) - Noted. 8. Listed allergy to NSAID's and prednisone (SOB) - Noted. 9. OA - Stable. 10. DVT prophylaxis - Lovenox 40 mg sq daily. Total time: Approximately (but not less than) 55 minutes. Charges/Coding Visit Charges Inpatient E&M: 19897 Init Hosp L2
[2024-07-04 05:19] LABS: Internal QC Validated? YES +Cl - CLEAR BKGD; Monotest Negative (Negative); Record Kit Lot#, Mono 13241033
[2024-07-04 05:19] LABS: Amphetamine Urine VISTA NEGATIVE (<1000 ng/mL); Barbiturate Urine VISTA NEGATIVE (< 200 ng/mL); Benzodiazepine Urine VISTA NEGATIVE (< 200 ng/mL); Cocaine Urine VISTA NEGATIVE (< 300 ng/mL); Ecstacy Urine VISTA NEGATIVE (< 500 ng/mL); Methadone Urine VISTA NEGATIVE (< 300 ng/mL); PCP Urine VISTA NEGATIVE (< 25 ng/mL); THC Urine VISTA NEGATIVE (< 50 ng/mL); Vista UDS pH Range 6
[2024-07-04 05:21] LABS: Alcohol, Blood (Medical)-Serum < 3.0 mg/dL
[2024-07-04 05:34] LABS: Vitamin B12 829 pg/mL (211-911)
[2024-07-04 06:05] LABS: Cholesterol 138 mg/dL (200); High Density Lipoprotein 72 mg/dL; Triglycerides 71 mg/dL; Very Low Density Lipoprotein 14 mg/dL (5-40)
[2024-07-04] MEDS: 0.9% Normal Saline (1000mL) 1,000 ML 125 ML IV ×2 (07:01→15:22)
[2024-07-04] MEDS: Albuterol 2.5 MG/3 ML VIAL.NEB. INHALATION ×3 (09:56→20:10)
[2024-07-04] MEDS: Pantoprazole Sodium 40 MG in 0.9% Normal Saline (100mL MB+) 100 ML 330 MG IV (11:31)
[2024-07-04] MEDS: LORazepam 2 MG/ML Syringe 0.5 MG IV (12:45)
[2024-07-04] MEDS: Enoxaparin 40 MG/0.4 ML Syringe SC (12:45)
--- NOTE | 2024-07-04 14:38 | PCM.HOSP.N ---
Hospitalist Note Patient admitted earlier this morning for pancreatitis. Saw patient at bedside later in the morning, significant other present. Patient was fatigued appearing but otherwise sitting up fairly comfortably in bed and in no acute distress. She did not appear to be in much pain. Stated she had mild epigastric pain currently that was improved from earlier this morning. She felt thirsty but otherwise did not have much of an appetite. Denied any nausea or vomiting since admission. Denied any fevers or chills. On chart review, patient was found to have elevated lipase of greater than [address] abdomen pelvis findings consistent with sequelae of chronic pancreatitis. However patient denies history of pancreatitis and has no overt risk factors for pancreatitis. Denies alcohol use. Denies any history of gallbladder dysfunction. LFTs were normal and there is no gallbladder or liver pathology noted on CT. Triglyceride level was normal. GI consulted and will see the patient tomorrow. Patient okay for clear liquid diet for now. Appreciate further GI recommendations. Full progress note to follow tomorrow.
[2024-07-04] MEDS: busPIRone 15 MG TABLET PO ×2 (15:28→21:06)
[2024-07-04] MEDS: Budesonide Respules 0.5 MG/2 ML AMPUL.NEB. INHALATION (20:10)
[2024-07-04] MEDS: Amitriptyline 25 MG Tablet PO (21:05)
[2024-07-05] MEDS: busPIRone 15 MG TABLET PO (05:50)
[2024-07-05] MEDS: LORazepam 0.5 MG Tablet PO ×2 (05:53→09:13)
[2024-07-05 06:00] VITALS: BP 122/73; PULSE 93; RESP 16; TEMP 36.6; O2SAT 95; BMI 16.9
[2024-07-05 06:09] LABS: Absolute Lymphocyte Count 1.79 X10^3/uL (0.83-4.51); Basophil# 0.03 X10^3/uL; Basophil% 0.4 % (0-1); Eosinophil# 0.38 X10^3/uL; Eosinophils% 5.6 % (0-5); Hematocrit 36.8 % (37-47); Lymphocyte # 1.79 X10^3/ul (0.83-4.51); Lymphocyte % 26.2 % (19-41); Mean Corp Hgb Conc 32.6 g/dL (32-36); Mean Corpuscular Hgb 33.8 pg (27.0-32.0); Mean Corpuscular Volume 103.7 fL (81-99); Mean Platelet Vol. 9.4 fl (6.2-12.0); Monocyte# 0.61 X10^3/uL; Monocyte% 8.9 % (0-10); NRBC Flagged by Analyzer 0 % (0-5); Neutrophil # 3.99 X10^3/uL (2.7-7.7); Neutrophil % 58.6 % (47-70); Platelet Count 212 K/mm3 (150-450); RBC Distribution Width CV 12.2 % (11.6-14.6); RBC Distribution Width SD 46.3 fl (35.1-43.9); Red Blood Count 3.55 M/mm3 (4.2-5.4); White Blood Count 6.8 K/mm3 (4.4-11.0)
[2024-07-05 06:59] LABS: ALB/GLOB Ratio 1.1 RATIO (0.9-2.4); AST(SGOT) 25 U/L (15-37); Alanine Aminotransfer ALT/SGPT 21 U/L (13-56); Albumin, Serum 3.2 g/dL (3.2-5.0); Alkaline Phosphatase 110 U/L (45-117); Anion Gap 5 (5-15); BUN 3 mg/dL (7-18); BUN/Creat Ratio 3.9 RATIO (10-20); Calcium,Total 8.8 mg/dL (8.5-10.1); Chloride 113 mmol/L (98-107); Creatinine, Serum 0.77 mg/dL (0.55-1.02); EST Glomerular Filtration Rate 83 mL/min (>60); Est Glom Filt Rate - Afr Amer 100 mL/min (>60); Estimated Creatinine Clearance 64.34 ml/min; Globulin 2.8 g/dL (2.2-4.2); Glucose 81 mg/dL (74-106); Potassium 3.9 mmol/L (3.5-5.1); Sodium Level 142 mmol/L (136-145)
[2024-07-05] MEDS: Budesonide Respules 0.5 MG/2 ML AMPUL.NEB. INHALATION (07:19)
[2024-07-05] MEDS: Albuterol 2.5 MG/3 ML VIAL.NEB. INHALATION ×2 (07:20→11:58)
[2024-07-05 07:21] VITALS: PULSE 80; RESP 16; O2SAT 97
[2024-07-05 08:01] VITALS: BP 116/61; PULSE 67; RESP 18; TEMP 36.8; O2SAT 97
[2024-07-05] MEDS: Loratadine 10 MG Tablet PO (08:07)
--- NOTE | 2024-07-05 08:07 | MRI_ITS ---
INDICATION: pancreatitis, fatigue EXAMINATION: MRI - MR MRCP and Abdomen W/O Contrast TECHNIQUE: Multiplanar and multisequence MR images of the abdomen were obtained with MRCP sequence. Three-dimensional post-processing reconstructions were performed. IV Contrast Dosage and Agent: None. COMPARISON: Prior study dated: 07/04/2024 CT FINDINGS: LIVER: No mass. Normal morphology. GALLBLADDER AND BILIARY TREE: No gallstones. No gallbladder distension or wall edema. The CBD measures 0.2 cm. No intra- or extrahepatic biliary dilation. No choledochal filling defect. PANCREAS: No mass. No pancreatic duct dilation. Acinarization in the region of the pancreatic head. SPLEEN: Non-enlarged. ADRENAL GLANDS: No nodules. KIDNEYS: Normal renal size and position. No hydronephrosis. No mass. LYMPH NODES: No enlarged periportal or retroperitoneal lymph nodes. PERITONEUM: No ascites or fluid collection. VESSELS: Aorta is non-dilated. LOWER CHEST: No pleural effusion. MRI/MRCP Abdomen without Contrast IMPRESSION: No biliary or pancreatic ductal dilatation. Acinarization in the region of the pancreatic head likely the sequela of chronic pancreatitis. Electronically Signed: Ruslan Lee MD at 10:51 EST ,
--- NOTE | 2024-07-05 08:46 | PN.HOSP_ITS ---
Reason for Visit Reason for Visit: Diagnoses Depression, unspecified (07/04/24) Anxiety disorder, unspecified (07/04/24) Chronic obstructive pulmonary disease, unspecified (07/04/24) Other chronic pancreatitis (07/04/24) Tobacco use (07/04/24) Objective Data Objective Data Vital Signs: Vital Signs Temp Pulse Resp BP Pulse Ox O2 Del Method 36.8 C 67 18 116/61 97 Room Air 07/05/24 08:01 07/05/24 08:01 07/05/24 08:01 07/05/24 08:01 07/05/24 08:01 07/05/24 08:03 Oxygen Delivery Method Room Air Weight: 48.8 kg Body Mass Index (BMI) 16.9 Intake & Output: Intake and Output for Last 24 Hours 07/03/24 07/04/24 07/05/24 23:59 23:59 23:59 Intake Total 3110 / 3110 Balance 3110 / 3110 Lab / Micro Data 07/05/24 05:38 07/05/24 05:38 Labs: Laboratory Results - last 24 hr 07/05/24 05:38: WBC 6.8, RBC 3.55 L, Hgb 12.0, Hct 36.8 L, MCV 103.7 H, MCH 33.8 H, MCHC 32.6, RDW Std Deviation 46.3 H, RDW Coeff of Bruce 12.2, Plt Count 212, MPV 9.4, Immature Gran % (Auto) 0.300, Neut % (Auto) 58.6, Lymph % (Auto) 26.2, [place] % (Auto) 8.9, Eos % (Auto) 5.6 H, Baso % (Auto) 0.4, Absolute Neuts (auto) 4.0, Absolute Lymphs (auto) 1.79, Nucleated RBC % 0, Sodium 142, Potassium 3.9, Chloride 113 H, Carbon Dioxide 24.0, Anion Gap 5, BUN 3 L, Creatinine 0.77, Estim Creat Clear Calc 64.34, Est GFR (MDRD) Af Amer 100, Est GFR (MDRD) Non-Af 83, BUN/Creatinine Ratio 3.9 L, Glucose 81, Calcium 8.8, Phosphorus 3.0, Magnesium 2.0, Total Bilirubin 0.50, AST 25, ALT 21, Alkaline Phosphatase 110, T otal Protein 6.0 L, Albumin 3.2, Globulin 2.8, Albumin/Globulin Ratio 1.1, TSH 3.210 Assessment & Plan Assessment/Plan (1) Pancreatitis: QUALIFIERS: Chronicity: chronic Pancreatitis type: unspecified pancreatitis type Qualified Code(s): K86.1 - Other chronic pancreatitis (2) Tobacco abuse: (3) COPD (chronic obstructive pulmonary disease): QUALIFIERS: COPD type: unspecified COPD Qualified Code(s): J44.9 - Chronic obstructive pulmonary disease, unspecified (4) Depression: QUALIFIERS: Depression Type: unspecified Qualified Code(s): F32.A - Depression, unspecified (5) Anxiety: PLAN: Plan Acute on chronic Pancreatitis * confirmatory serum lipase of >5K present on admission with patient denying a history of pancreatitis * Keep strict n.p.o. and give IV Zofran as needed nausea or vomiting with Phenergan IM as needed for breakthrough nausea and vomiting. Start Protonix 40 mg IV daily. Patient refused morphine in ER due to concerns about potential allergies and side effects but she responded well to Ativan IV which seemed to control her symptoms. She has a listed allergy to NSAIDs and codeine which severely restricted potential choices for IV pain control. Since the etiology of her pancreatitis is currently unclear we will check Lipid Profile, CA 19-9, UDS and DANYA to more fully assess for potential underlying causes. Finally, we will consult gastroenterology to see this patient on-rounds in the AM for further recommendations with help appreciated in advance. Chronic conditions: * Chronic tobacco abuse; with subsequent COPD complicating #1 - Noted with patient currently having no acute signs of flare. Continue inhalers and nebulizer as previous. Tobacco cessation will be strongly encouraged with nicotine patch offered to control cravings. * Depression with anxiety; on buspirone and prn lorazepam compounding #1 & #2 - Restart buspirone patient is able to tolerate p.o. intake. Give lorazepam IV as needed for breakthrough symptoms. DVT prophylaxis - Lovenox 40 mg sq daily.
--- NOTE | 2024-07-05 08:46 | PCM.PN.HOSP ---
Reason for Visit Reason for Visit: Diagnoses Depression, unspecified (07/04/24) Anxiety disorder, unspecified (07/04/24) Chronic obstructive pulmonary disease, unspecified (07/04/24) Other chronic pancreatitis (07/04/24) Tobacco use (07/04/24) Subjective Subjective Feeling much better. Tolerated clear diet. Never any abdominal pain like this before. Objective Data Objective Data Vital Signs: Vital Signs Temp Pulse Resp BP Pulse Ox O2 Del Method 36.8 C 67 18 116/61 97 Room Air 07/05/24 08:01 07/05/24 08:01 07/05/24 08:01 07/05/24 08:01 07/05/24 08:01 07/05/24 08:03 Oxygen Delivery Method Room Air Weight: 48.8 kg Body Mass Index (BMI) 16.9 Intake & Output: Intake and Output for Last 24 Hours 07/03/24 07/04/24 07/05/24 23:59 23:59 23:59 Intake Total 3110 / 3110 Balance 3110 / 3110 Lab / Micro Data 07/05/24 05:38 07/05/24 05:38 Labs: Laboratory Results - last 24 hr 07/05/24 05:38: WBC 6.8, RBC 3.55 L, Hgb 12.0, Hct 36.8 L, MCV 103.7 H, MCH 33.8 H, MCHC 32.6, RDW Std Deviation 46.3 H, RDW Coeff of Bruce 12.2, Plt Count 212, MPV 9.4, Immature Gran % (Auto) 0.300, Neut % (Auto) 58.6, Lymph % (Auto) 26.2, [place] % (Auto) 8.9, Eos % (Auto) 5.6 H, Baso % (Auto) 0.4, Absolute Neuts (auto) 4.0, Absolute Lymphs (auto) 1.79, Nucleated RBC % 0, Sodium 142, Potassium 3.9, Chloride 113 H, Carbon Dioxide 24.0, Anion Gap 5, BUN 3 L, Creatinine 0.77, Estim Creat Clear Calc 64.34, Est GFR (MDRD) Af Amer 100, Est GFR (MDRD) Non-Af 83, BUN/Creatinine Ratio 3.9 L, Glucose 81, Calcium 8.8, Phosphorus 3.0, Magnesium 2.0, Total Bilirubin 0.50, AST 25, ALT 21, Alkaline Phosphatase 110, Total Protein 6.0 L, Albumin 3.2, Globulin 2.8, Albumin/Globulin Ratio 1.1, TSH 3.210 Physical Exam Const alert and no apparent distress HEENT head/scalp atraumatic and moist oral mucous membranes Resp normal respiratory effort, no retractions, no use of accessory muscles and clear to auscultation bilaterally Cardio regular rate, regular rhythm, S1 normal heart sound and S2 normal heart sound GI normal to inspection, nondistended, normoactive bowel sounds, soft to palpation and non-tender Assessment & Plan Assessment/Plan (1) Pancreatitis: QUALIFIERS: Chronicity: chronic Pancreatitis type: unspecified pancreatitis type Qualified Code(s): K86.1 - Other chronic pancreatitis PLAN: Plan Acute on chronic Pancreatitis confirmatory serum lipase of >5K present on admission with patient denying a history of pancreatitis Feeling much better at this time. Patient MRCP as well as CAT scan that showed evidence of chronic pancreatitis but no dilated bile ducts. Patient is nondrinker. Clear to the patient that with her sudden onset of symptoms to suggest that this was probably a gallstone but would not seeing any evidence nor any bile duct dilation. Though it is confounding the fact that she has evidence of chronic pancreatitis on her images. I did discuss case with Dr. Gusman who will order some genetic testing. I did discuss with him if it would be okay to discharge her and follow-up with him in the office needed that that would be appropriate. Did discuss with this with the patient and she was agreeable. She is advised that these test will be send outs and would not have any information for several days at the earliest. Chronic conditions: Chronic tobacco abuse; with subsequent COPD complicating #1 - Noted with patient currently having no acute signs of flare. Continue inhalers and nebulizer as previous. Tobacco cessation will be strongly encouraged with nicotine patch offered to control cravings. Depression with anxiety; on buspirone and prn lorazepam compounding #1 & #2 - Restart buspirone patient is able to tolerate p.o. intake. Give lorazepam IV as needed for breakthrough symptoms. DVT prophylaxis - Lovenox 40 mg sq daily.
--- NOTE | 2024-07-05 09:29 | CON.PCM.GI_ITS ---
HPI Consult Data Date of Consult: 07/05/24 HPI Narrative Reason for Consultation: Pancreatitis HPI Narrative: JAYY GIVENS, is a54 F with a past medical history of chronic tobacco abuse; with subsequent COPD, depression with anxiety; on buspirone and prn lorazepam, history of hysterectomy, listed allergy to Advair (anaphylaxis), listed allergy to codeine (SOB), listed allergy to gabapentin (SOB), listed allergy to NSAID's and prednisone (SOB) and OA who presents to [facility] ER complaining of abdominal pain. Mrs. Givens reports her symptoms began approximately 3:00 PM yesterday when she suddenly developed abdominal pain that was [id number], cramping and with nothing making the pain better or worse. At first she decided to wait a few hours to see if her symptoms would resolve spontaneously - but then when they failed to improve she decided to come in for further evaluation and treatment. She denies a personal history of pancreatitis or a family history of pancreatic cancer/disease, history of hypertriglyceridemia, history significant EtOH use, gallbladder disease including gallstones and she also denies NSAID use, new medications or recent abdominal trauma. There was no report of associated fever, chills, nausea, vomiting, diarrhea, constipation, blood in stools, dysuria or headache. In the ER she was noted to have CT evidence of Chronic Pancreatitis with a confirmatory serum lipase of >5K. [facility] Medical History COPD (chronic obstructive pulmonary disease) Home Medications ?Medication ?Instructions ?Recorded ?Last Taken ?Type budesonide-formoterol HFA 160 1 inhaler inhalation DAILY 03/25/19 Unknown History mcg-4.5 mcg/actuation aerosol inhaler buspirone 15 mg tablet 15 mg PO TID 03/25/19 Unknown History albuterol sulfate 90 mcg/actuation 2 puff inhalation Q4H PRN PRN 07/04/24 Unknown History aerosol inhaler bronchospasm, sob, wheezing amitriptyline 25 mg tablet 25 mg PO QHS 07/04/24 Unknown History loratadine 10 mg tablet 10 mg PO DAILY allergy 07/04/24 Unknown History (Allerclear) lorazepam 0.5 mg tablet 0.5 mg PO DAILY PRN anxiety 07/04/24 Unknown History acetaminophen 500 mg capsule 1,000 mg (2 x 500 mg) PO Q8H PRN 07/05/24 Unknown Rx PRN fever or pain #20 caps ondansetron 8 mg disintegrating 8 mg PO Q8H PRN nausea and 07/05/24 Unknown Rx tablet vomiting #10 tabs oxycodone 5 mg capsule 5 mg PO Q6H PRN pain (scale score 07/05/24 Unknown Rx 7-10) 3 days #12 caps Allergy/AdvReac Type Severity Reaction Status Date / Time fluticasone (From Advair Allergy Severe Anaphylaxis Verified 07/04/24 01:54 Diskus) salmeterol (From Advair Allergy Severe Anaphylaxis Verified 07/04/24 01:54 Diskus) codeine Allergy Shortness Verified 07/04/24 01:54 of breath gabapentin (From Neurontin) Allergy Shortness Verified 07/04/24 01:54 of breath ibuprofen (From Advil) Allergy Shortness Verified 07/04/24 01:54 of breath latex Allergy Shortness Verified 07/04/24 01:54 of breath NSAIDS (Non-Steroidal Allergy Shortness Verified 07/04/24 01:54 Anti-Inflamma of breath prednisone Allergy Shortness Verified 07/04/24 01:54 of breath Surgical History H/O: hysterectomy Social History Smoking Status: Current every day smoker tobacco type: cigarettes ROS ROS Narrative As per HPI Physical Exam Narrative Physical examination was not performed Lab / Micro Data 07/05/24 05:38 07/05/24 05:38 Labs: Laboratory Results - last 24 hr 07/05/24 05:38: WBC 6.8, RBC 3.55 L, Hgb 12.0, Hct 36.8 L, MCV 103.7 H, MCH 33.8 H, MCHC 32.6, RDW Std Deviation 46.3 H, RDW Coeff of Bruce 12.2, Plt Count 212, MPV 9.4, Immature Gran % (Auto) 0.300, Neut % (Auto) 58.6, Lymph % (Auto) 26.2, [place] % (Auto) 8.9, Eos % (Auto) 5.6 H, Baso % (Auto) 0.4, Absolute Neuts (auto) 4.0, Absolute Lymphs (auto) 1.79, Nucleated RBC % 0, ESR 6, Sodium 142, Potassium 3.9, Chloride 113 H, Carbon Dioxide 24.0, Anion Gap 5, BUN 3 L, Creatinine 0.77, Estim Creat Clear Calc 64.34, Est GFR (MDRD) Af Amer 100, Est GFR (MDRD) Non-Af 83, BUN/Creatinine Ratio 3.9 L, Glucose 81, Calcium 8.8, Phosphorus 3.0, Magnesium 2.0, Total Bilirubin 0.50, AST 25, ALT 21, Alkaline Phosphatase 110, Lactate Dehydrogenase 207, C-React Prot Ext Range 7.39 H, Total Protein 6.0 L, Albumin 3.2, Globulin 2.8, Albumin/Globulin Ratio 1.1, TSH 3.210 Imaging Radiology Impression MRCP 07/05/24 08:07 IMPRESSION: No biliary or pancreatic ductal dilatation. Acinarization in the region of the pancreatic head likely the sequela of chronic pancreatitis. Electronically Signed: Ruslan Lee MD at 10:51 EST , Assessment & Plan Assessment/Plan (1) Pancreatitis: QUALIFIERS: Chronicity: chronic Pancreatitis type: unspecified pancreatitis type Qualified Code(s): K86.1 - Other chronic pancreatitis PLAN: Plan 54-year-old who comes in with acute on chronic Pancreatitis * confirmatory serum lipase of >5K present on admission with patient denying a history of pancreatitis * Feeling much better at this time. Patient MRCP as well as CAT scan that showed evidence of chronic pancreatitis but no dilated bile ducts. It did show possible pancreatic divisum. Due to her history of acute recurrent chronic pancreatitis we will send off labs for hereditary pancreatitis including the OR SS 1 gene and trypsin mutation gene analysis. * Patient is nondrinker. She has evidence of chronic pancreatitis on her images. Since patient has done okay she will follow-up in the office for the rest of the workup for chronic pancreatitis. Encouraged smoking cessation. Charges/Coding Visit Charges Inpatient E&M: 03483 Init Hosp L3
[2024-07-05] MEDS: Enoxaparin 40 MG/0.4 ML Syringe SC (10:39)
[2024-07-05] MEDS: 0.9% Saline Lock 10 ML Syringe IV (10:39)
[2024-07-05] MEDS: Pantoprazole Sodium 40 MG in 0.9% Normal Saline (100mL MB+) 100 ML 330 MG IV (10:40)
--- NOTE | 2024-07-05 11:20 | CASEMGMT ---
Addendum entered by Alexandra Mcwilliams 07/05/24 11:56: Strata 1 Original Note: RN?CM?TELECOMMUNICATIONS ANALYST?CM?to room to meet with patient for initial transition planning/care coordination?assessment.?RN?CM?introduced self and role at [facility].? Pt voices understanding and consents to?assessment?at this time.? Pt resting in bed in no distress at this time.? Pt is A/O at this time and answers all questions appropriately.?? Care providers, pharmacy, and demographics verified/updated at this time. PCP: Dr Glaser Specialists: Dr Sheila Clay-pulmonology, Dr Parra-oncology Preferred Pharmacy: [facility] @ [address]. Otherwise, goes to [facility] Insurance: [facility], [employer] Prescription Benefit:?yes Living Will/HPOA:? Pt does not currently have LW/HCPOA and declines info at this time.? Pt made aware that she can contact as an out-pt and make appt in the future if she decides she would like to talk with someone about this or would like to utilize [facility] social work for advanced directive completion.? LNOK: 2 sons, ages 34 and 32. Father, Vaibhav. Mother lives in [place]. Living Arrangements: Lives w/boyfriend in 2-story home w/2 steps to enter. [employer]. Indpependent. Transportation:?Pt states drives self and states no transportation concerns at this time. DME: ?nebulizer HHC/SNF: No hx. Has went to [facility] for OP therapy. Pt wishes to return home and states has no concerns with going home at time of discharge. PLAN:??Home Fred RAMOSN?RN?CM
--- NOTE | 2024-07-05 11:22 | DS.PCM_ITS ---
Providers Date of Admission: 07/04/24 Primary Care Physician: Dr. Shanice Glaser MD Consultations 07/04/24 06:33 Consult: Gastroenterology Routine Consulting Provider: Aiden Gusman Reason for Consult: Pancreatitis EMERGENT Consult: No MD Notified: Yes Date Notified: 07/04/24 Time Notified: 08:01 Method of Notification: Text Reason For Visit: PANCREATITIS Diagnosis Discharge Diagnosis (1) Pancreatitis: Status: Acute Code(s): K85.90 - Acute pancreatitis without necrosis or infection, unspecified Qualifiers: Chronicity: chronic Pancreatitis type: unspecified pancreatitis type Q ualified Code(s): K86.1 - Other chronic pancreatitis Plan Acute on chronic Pancreatitis * confirmatory serum lipase of >5K present on admission with patient denying a history of pancreatitis * Feeling much better at this time. Patient MRCP as well as CAT scan that showed evidence of chronic pancreatitis but no dilated bile ducts. Patient is nondrinker. Clear to the patient that with her sudden onset of symptoms to suggest that this was probably a gallstone but would not seeing any evidence nor any bile duct dilation. Though it is confounding the fact that she has evidence of chronic pancreatitis on her images. I did discuss case with Dr. Gusman who will order some genetic testing. I did discuss with him if it would be okay to discharge her and follow-up with him in the office needed that that would be appropriate. Did discuss with this with the patient and she was agreeable. She is advised that these test will be send outs and would not have any information for several days at the earliest. Chronic conditions: * Chronic tobacco abuse; with subsequent COPD complicating #1 - Noted with patient currently having no acute signs of flare. Continue inhalers and nebulizer as previous. Tobacco cessation will be strongly encouraged with nicotine patch offered to control cravings. * Depression with anxiety; on buspirone and prn lorazepam compounding #1 & #2 - Restart buspirone patient is able to tolerate p.o. intake. Give lorazepam IV as needed for breakthrough symptoms. DVT prophylaxis - Lovenox 40 mg sq daily. Medications at Discharge Home Medications budesonide-formoterol HFA 160 mcg-4.5 mcg/actuation aerosol inhaler 1 inhaler inhalation DAILY 03/25/19 buspirone 15 mg tablet 15 mg PO TID 08/29/19 albuterol sulfate 90 mcg/actuation aerosol inhaler 2 puff inhalation Q4H PRN PRN bronchospasm, sob, wheezing 07/04/24 amitriptyline 25 mg tablet 25 mg PO QHS 07/04/24 loratadine 10 mg tablet (Allerclear) 10 mg PO DAILY allergy 07/04/24 lorazepam 0.5 mg tablet 0.5 mg PO DAILY PRN anxiety 07/04/24 acetaminophen 500 mg capsule 1,000 mg (2 x 500 mg) PO Q8H PRN PRN fever or pain #20 caps 07/05/24 ondansetron 8 mg disintegrating tablet 8 mg PO Q8H PRN nausea and vomiting #10 tabs 07/05/24 oxycodone 5 mg capsule 5 mg PO Q6H PRN pain (scale score 7-10) 3 days #12 caps 07/05/24 Hospital Course Operations None Procedures None Summary of Care Provided Minutes Spent on Discharge: 31 Hospital Course: Patient presents with abdominal pain found to have acute pancreatitis based on her elevated lipase. CT as well as MRI showed evidence of chronic pancreatitis. Patient does not drink alcohol. Did discuss case with Dr. Gu, of gastroenterology, he is can order some genetic testing to further evaluate the etiology of her pancreatitis. Discussed with the patient that she is feeling well and should be discharged with outpatient follow-up with gastroenterology. Weight / BMI Weight Weight: 48.8 kg Body Mass Index (BMI) 16.9 ABG / Lab / Microbiology Data 07/05/24 05:38 07/05/24 05:38 Laboratory: Laboratory Results - last 24 hr 07/05/24 05:38: WBC 6.8, RBC 3.55 L, Hgb 12.0, Hct 36.8 L, MCV 103.7 H, MCH 33.8 H, MCHC 32.6, RDW Std Deviation 46.3 H, RDW Coeff of Bruce 12.2, Plt Count 212, MPV 9.4, Immature Gran % (Auto) 0.300, Neut % (Auto) 58.6, Lymph % (Auto) 26.2, [place] % (Auto) 8.9, Eos % (Auto) 5.6 H, Baso % (Auto) 0.4, Absolute Neuts (auto) 4.0, Absolute Lymphs (auto) 1.79, Nucleated RBC % 0, Sodium 142, Potassium 3.9, Chloride 113 H, Carbon Dioxide 24.0, Anion Gap 5, BUN 3 L, Creatinine 0.77, Estim Creat Clear Calc 64.34, Est GFR (MDRD) Af Amer 100, Est GFR (MDRD) Non-Af 83, BUN/Creatinine Ratio 3.9 L, Glucose 81, Calcium 8.8, Phosphorus 3.0, Magnesium 2.0, Total Bilirubin 0.50, AST 25, ALT 21, Alkaline Phosphatase 110, T otal Protein 6.0 L, Albumin 3.2, Globulin 2.8, Albumin/Globulin Ratio 1.1, TSH 3.210 Radiography Diagnostic Testing: Radiology Impression MRCP 07/05/24 08:07 IMPRESSION: No biliary or pancreatic ductal dilatation. Acinarization in the region of the pancreatic head likely the sequela of chronic pancreatitis. Electronically Signed: Ruslan Lee MD at 10:51 EST Reading Location ID and State: [address] [place] [address] Tel , Service support , D/C Instructions Discharge Diet: - (Gilliam diet, advance slowly as tolerated over the next few days.) DC O2, CPAP, BIPAP Needs Additional Home O2 Discharge instructions: No DC home with Oxygen: No Meaningful Use Info Meaningful Use Meaningful Use Diagnoses (Choose all that apply): None applicable Ischemic Stroke Statin Dosing Therapy Reference: STATIN DOSE THERAPY REFERENCE: * Patients > 75 years receive moderate or high dose statin therapy. * Patients 75 years or YOUNGER should receive HIGH intensity statin dose unless contraindicated. You will be required to document reason for non-treatment if statin daily dose does not meet guidelines. HIGH DOSE STATIN THERAPY DAILY Atorvastatin > than or = to 40 mg Rosuvastatin > than or = to 20 mg Amlodipine + Atorvastatin > than or = to 2.5/40 mg Ezetimibe + Simvastatin 10/80 mg Simvastatin 80mg Discharge Plan Admission Admit Date/Time: 07/04/24 04:41 Primary Reason for Your Visit: pancreatitis Attending Provider: Davonte Ye Primary Care Provider: Shanice Glaser Consulting Providers: Praveen Mejia; Uzma,Aiden; Ney Cid Discharge Orders/Prescriptions Prescriptions: New acetaminophen 500 mg capsule 1,000 mg PO Q8H PRN PRN (Reason: fever or pain) Qty: 20 0RF oxycodone 5 mg capsule 5 mg PO Q6H PRN (Reason: pain (scale score 7-10)) 3 Days Qty: 12 0RF ondansetron 8 mg tablet,disintegrating 8 mg PO Q8H PRN (Reason: nausea and vomiting) Qty: 10 0RF Continued buspirone 15 MG tablet 15 mg PO TID Patient Comments: TAKE 1 TABLET BY MOUTH THREE TIMES A DAY budesonide-formoterol 1 INHALER inhaler 1 inhaler inhalation DAILY Patient Comments: INHALE 1 PUFF BY MOUTH INSTRUCTED TWICE DAILY. albuterol sulfate 90 mcg/actuation HFA aerosol inhaler 2 puff INHALATION Q4H PRN PRN (Reason: bronchospasm, sob, wheezing) amitriptyline 25 mg tablet 25 mg PO QHS lorazepam 0.5 mg tablet 0.5 mg PO DAILY PRN (Reason: anxiety) loratadine [Allerclear] 10 mg tablet 10 mg PO DAILY Referrals / Follow Up: Shanice Glaser MD [Primary Care Provider] - Within 2 Weeks Aiden Gusman DO [Med Staff - Active Staff] - Within 1 Month Disposition Disposition (needs filled in before D/C Order can be placed): Home, Self Care Charges/Coding Visit Charges Inpatient E&M: 66010 Disch Hosp >30min
[2024-07-05 11:40] LABS: Erythrocyte Sedimentation Rate 6 mm/hr (0-30)
--- NOTE | 2024-07-05 11:43 | CASEMGMT ---
TC to [facility] Puja Phillips is aware that pt requested meds be delivered to room once ready.
[2024-07-05 11:51] LABS: CRP 7.39 mg/L (0.0-3.0); LDH 207 U/L (84-246)
[2024-07-05 11:58] VITALS: PULSE 70; RESP 16
--- NOTE | 2024-07-05 12:05 | PHA.DC.MC.R ---
Pharmacy [facility] Pharmacy Service has performed discharge medication reconciliation and counseling for this patient. 1. ACETAMINOPHEN 1000MG PO Q8H PRN PAIN/FEVER 2. ONDANSETRON 8MG PO Q8H PRN NAUSEA/VOMITING 3. OXYCODONE 5MG PO Q6H PRN PAIN The patient's discharge medication list was reviewed for discrepancies and discrepancies were resolved. The patient was counseled on the following discharge medications and changes in medications for homegoing were reviewed. The Reason for Use, instructions for use, and potential side effects were reviewed for all new medications. The patient's questions regarding all of their medications were answered. The patient was able to verbally demonstrate an understanding of their discharge medications. Medications at Discharge Home Medications budesonide-formoterol HFA 160 mcg-4.5 mcg/actuation aerosol inhaler 1 inhaler inhalation DAILY 03/25/19 buspirone 15 mg tablet 15 mg PO TID 03/25/19 albuterol sulfate 90 mcg/actuation aerosol inhaler 2 puff inhalation Q4H PRN PRN bronchospasm, sob, wheezing 07/04/24 amitriptyline 25 mg tablet 25 mg PO QHS 07/04/24 loratadine 10 mg tablet (Allerclear) 10 mg PO DAILY allergy 07/04/24 lorazepam 0.5 mg tablet 0.5 mg PO DAILY PRN anxiety 07/04/24 acetaminophen 500 mg capsule 1,000 mg (2 x 500 mg) PO Q8H PRN PRN fever or pain #20 caps 07/05/24 ondansetron 8 mg disintegrating tablet 8 mg PO Q8H PRN nausea and vomiting #10 tabs 07/05/24 oxycodone 5 mg capsule 5 mg PO Q6H PRN pain (scale score 7-10) 3 days #12 caps 07/05/24
[2024-07-05 12:09] VITALS: BP 124/76; PULSE 86; RESP 18; TEMP 36.7; O2SAT 99
[2024-07-06 13:08] LABS: Anti-Centromere B Ab <0.2 AI (0.0-0.9); Anti-Chromatin <0.2 AI (0.0-0.9); Anti-Jo <0.2 AI (0.0-0.9); Anti-Scleroderma-70 AB <0.2 AI (0.0-0.9); Anti-dsDNA Ab 1 IU/mL (0-9); RNP Ab 0.2 AI (0.0-0.9); SJOGREN'S Anti-SS-A test < 0.2 AI (0.0-0.9); SJOGREN'S Anti-SS-B test 0.2 AI (0.0-0.9); Smith Ab <0.2 AI (0.0-0.9)
[2024-07-12 09:21] LABS: ACCA 3 units (0-90); ALCA 2 units (0-60); AMCA 0 units (0-100); Albumin 3.3 g/dL (2.9-4.4); Alpha-1-Globulins 0.3 g/dL (0.0-0.4); Alpha-2-Globulins 0.6 g/dL (0.4-1.0); Angiotensin Convert Enzyme 45 U/L (14-82); Carbohydrate AG 19-9 37 U/mL (0-35); Cytoplasmic Ab (C-ANCA) <1:20 titer (Neg:<1:20); Deamidated Gliadin IgA 3 units (0-19); Deamidated Gliadin IgG 2 units (0-19); Endomysial Antibody IgA Negative (Negative); Gamma Globulin 0.9 g/dL (0.4-1.8); Immunoglobulin A 169 mg/dL (87-352); Immunoglobulin G 1049 mg/dL (586-1602); Immunoglobulin M 73 mg/dL (26-217); PROEL- TOTAL PROTEIN 5.8 g/dL (6.0-8.5); Perinuclear Ab (P-ANCA) <1:20 titer (Neg:<1:20); gASCA 38 units (0-50); t-Transglutaminase IgA <2 U/mL (0-3)
== END 2024-07-05 12:31 | disposition home or self-care (01) | DRG 439 ==
LOC: ED 04:31 → MS3 04:47
PROVIDERS: Internal Medicine Gastroenterology; Admitting Provider Internal Medicine; Emergency Provider Emergency Medicine; PCP Internal Medicine
DX: K85.91 Acute pancreatitis with uninfected necrosis, unspecified (principal); Q45.3 Other congenital malformations of pancreas and pancreatic duct; J44.9 Chronic obstructive pulmonary disease, unspecified; F32.A Depression, unspecified; K86.1 Other chronic pancreatitis; M19.90 Unspecified osteoarthritis, unspecified site; F17.210 Nicotine dependence, cigarettes, uncomplicated; F41.9 Anxiety disorder, unspecified; Z79.891 Long term (current) use of opiate analgesic; Z79.899 Other long term (current) drug therapy
CPT/HCPCS: 36415; 74177; 74181; 80048; 80053; 80061; 80076; 80307; 81001; 82077; 82164; 82607; 82746; 82784; 83516; 83615; 83690; 83735; 84100; 84165; 84443; 85025; 85652; 86036; 86037; 86140; 86225; 86235; 86255; 86301; 86308; 86334; 86671; 94640; 94668; 99284; 99406; J7030; Q9967; A4216; J2405

== ENCOUNTER 2024-08-22 14:46 | Emergency (ER) | payer MEDICARE, MEDICAID, SELFPAY ==
[2024-08-22 14:47] VITALS: BP 115/73; PULSE 88; RESP 16; TEMP 36.5; O2SAT 98; BMI 17.5
[2024-08-22 15:46] VITALS: O2SAT 95
--- NOTE | 2024-08-22 15:52 | ED.VIS.DYS ---
HPI History of Present Illness Chief Complaint: Cough [facility] Medical History (Updated 08/22/24 @ 18:[address] Navin Llanos, DO) Chronic inflammation of pancreas Depression Tobacco abuse Anxiety COPD (chronic obstructive pulmonary disease) COPD (chronic obstructive pulmonary disease) Home Medications ?Medication ?Instructions ?Recorded ?Last Taken ?Type budesonide-formoterol HFA 160 1 inhaler inhalation DAILY 03/25/19 Unknown History mcg-4.5 mcg/actuation aerosol inhaler buspirone 15 mg tablet 15 mg PO TID 03/25/19 Unknown History albuterol sulfate 90 mcg/actuation 2 puff inhalation Q4H PRN PRN 07/04/24 Unknown History aerosol inhaler bronchospasm, sob, wheezing amitriptyline 25 mg tablet 25 mg PO QHS 07/04/24 Unknown History loratadine 10 mg tablet 10 mg PO DAILY allergy 07/04/24 Unknown History (Allerclear) lorazepam 0.5 mg tablet 0.5 mg PO DAILY PRN anxiety 07/04/24 Unknown History acetaminophen 500 mg capsule 1,000 mg (2 x 500 mg) PO Q8H PRN 07/05/24 Unknown Rx PRN fever or pain #20 caps ascorbic acid (vitamin C) 1,000 mg 1 g PO Q6H 07/30/24 Unknown History capsule multivitamin 1 tab PO QDAY 07/30/24 Unknown History Allergy/AdvReac Type Severity Reaction Status Date / Time fluticasone (From Advair Allergy Severe Anaphylaxis Verified 08/22/24 14:47 Diskus) salmeterol (From Advair Allergy Severe Anaphylaxis Verified 08/22/24 14:47 Diskus) codeine Allergy Shortness Verified 08/22/24 14:47 of breath gabapentin (From Neurontin) Allergy Shortness Verified 08/22/24 14:47 of breath ibuprofen (From Advil) Allergy Shortness Verified 08/22/24 14:47 of breath latex Allergy Shortness Verified 08/22/24 14:47 of breath NSAIDS (Non-Steroidal Allergy Shortness Verified 08/22/24 14:47 Anti-Inflamma of breath prednisone Allergy Shortness Verified 08/22/24 14:47 of breath Surgical History H/O: hysterectomy Social History Smoking Status: Current every day smoker tobacco type: cigarettes EXAM Physical Exam Const Vital Signs: 08/22/24 14:47 08/22/24 15:46 Temperature 97.7 F L Temperature Source Oral Pulse Rate 88 Respiratory Rate 16 Respiratory Effort Normal Non-Labored Respiratory Depth Normal Respiratory Pattern Normal Blood Pressure 115/73 Blood Pressure Mean 87 Pulse Ox 98 Oxygen Delivery Method Room Air [place] [facility] [place] Medical decision making narrative: HISTORY OF PRESENT ILLNESS: 54-year-old female history of COPD, tobacco abuse presents with cough and chest congestion for last 5 days. She further states she has no chest pain or shortness of breath. She notes she feels like she is trying to cough up phlegm that will not come up. She notes she has been taking Mucinex and Symbicort. Denies leg swelling. Denies fever. Denies sick contacts. REVIEW OF SYSTEMS: Pertinent positives: Cough, chest congestion Pertinent negatives: Chest pain, shortness of breath or leg swelling PHYSICAL EXAM: Nursing triage notes reviewed, Vital signs reviewed Constitutional: please see mdm Lungs: Clear to auscultation, No wheezing or rales. No increased work of breathing, no conversational dyspnea, no accessory muscle use, no nasal flaring. No respiratory distress noted Heart: Regular rate and rhythm, No murmurs, No rubs and No gallops, 2+ distal pulses (radial, femoral, posterior tibial) in all extremities Abdomen: Soft, there is no tenderness, rigidity, rebound or guarding, no obvious peritoneal signs, no palpable pulsatile abdominal masses, no auscultated abdominal bruit Extremities: No edema Neuro: No new focal neurological deficits, cranial nerves II through XII intact, 5/5 strength in all present extremities. Intact sensation to light touch in all present extremities, 2+ reflexes bilateral patella tendons. Skin: No rash or lesions noted MEDICAL DECISION MAKING: Chief Complaint: Cough, chest congestion External records reviewed: Reviewed prior imaging studies Factors affecting care: COPD Social determinants of health: tobacco abuse History obtained from others: none Consults: none [facility] Narrative: The patient was initially hemodynamically stable, afebrile and nontoxic-appearing. Exam with a nontoxic-appearing patient with normal vitals clear lungs and no respiratory distress. I considered the following differential diagnosis: Pneumonia, COVID, RSV, flu ALL IMAGES (IF OBTAINED) HAVE BEEN PERSONALLY REVIEWED AND INTERPRETED BY MYSELF. I have personally reviewed the patient's chest x-ray. Chest x-ray is unremarkable for pulmonary edema, pneumothorax, pneumonia or focal cardiopulmonary abnormality. COVID/flu/RSV negative Upon reevaluation the patient remains hemodynamically stable, afebrile nontoxic-appearing saturating well on room air. No increased work of breathing noted. No clear etiology of the patient's complaints. Vitals are stable. Patient for for discharge home. Likely viral URI. Encouraged Tylenol ibuprofen and positive [id number] remedies such as Mucinex. The patient and/or family, caregivers express understanding. The patient and/or family, caregivers agrees with the plan. Shared decision making: I will have a discussion with the patient and or visitors regarding risk/benefits of further testing or admission. They will be made aware of of the risk/benefits inherent in this decision they will be given the opportunity to voice understanding. Total critical care time today provided was at least 0 minutes. This excludes separately billable procedures. Critical care time (if documented) is secondary to the patient having high probability of clinically significant/life threatening deterioration in the patient's condition which required my urgent intervention. Impression: 1. Cough 2. History of COPD Dispo: Discharge home This note was generated with [employer] dictation software. It may contain incorrect words, spelling, and punctuation that were not noted in review of the chart prior to signing. Radiography Diagnostic Testing: Clinical Impression(s) from Imaging Studies Chest X-Ray 08/22/24 16:40 IMPRESSION: No radiographic evidence of acute cardiopulmonary disease. Electronically Signed: Eliezer Olivares MD at 17:39 EST Reading Location ID and State: [facility] / [place] Tel , Service support , Discharge Plan Triage Chief Complaint: Cough ED Provider: Navin Llanos Dx/Rx/DC Orders Clinical Impression: Viral URI with cough Prescriptions: No Action multivitamin Tablet 1 tab PO QDAY ascorbic acid (vitamin C) 1,000 mg capsule 1 g PO Q6H buspirone 15 MG tablet 15 mg PO TID Patient Comments: TAKE 1 TABLET BY MOUTH THREE TIMES A DAY budesonide-formoterol 1 INHALER inhaler 1 inhaler inhalation DAILY Patient Comments: INHALE 1 PUFF BY MOUTH INSTRUCTED TWICE DAILY. albuterol sulfate 90 mcg/actuation HFA aerosol inhaler 2 puff INHALATION Q4H PRN PRN (Reason: bronchospasm, sob, wheezing) amitriptyline 25 mg tablet 25 mg PO QHS lorazepam 0.5 mg tablet 0.5 mg PO DAILY PRN (Reason: anxiety) loratadine [Allerclear] 10 mg tablet 10 mg PO DAILY acetaminophen 500 mg capsule 1,000 mg PO Q8H PRN PRN (Reason: fever or pain) Qty: 20 0RF Primary Care Provider: Shanice Glaser Referrals: Shanice Glaser MD [Primary Care Provider] - Activity Restrictions/Additional Instructions: Thank you for trusting us with your care today! Your chest x-ray, COVID flu and RSV test were negative You are likely suffering from a viral infection. Is likely causing excessive inflammation and the precipitating cause your symptoms. This typically resolves in 7 to 14 days. Please take Tylenol (2 pills, 650 mg), ibuprofen (2 pills, 400 mg) every 6 hours as needed for pain and fever control. Please return to the emergency department if your symptoms change or worsen. Please follow with your primary care physician for further outpatient evaluation and management. Print Language: Indonesian Disposition Disposition: Home, Self Care Discharge Date/Time: 08/22/24 18:25
--- NOTE | 2024-08-22 16:40 | RAD_ITS ---
INDICATION: cough EXAMINATION/TECHNIQUE: X-RAY - XR Chest 2 Views COMPARISON: 10/19/2023 FINDINGS: LINES/DEVICES: None. LUNGS: Stable hyperinflation without consolidation, vascular congestion or pleural effusion. MEDIASTINUM AND CARDIOVASCULAR STRUCTURES: Cardiac silhouette not enlarged. Central airways and mediastinal contour are unremarkable. BONES AND SOFT TISSUES: No acute changes. RAD/Chest PA and Lateral IMPRESSION: No radiographic evidence of acute cardiopulmonary disease. Electronically Signed: Eliezer Olivares MD at 17:39 EST ,
== END 2024-08-22 18:25 | disposition home or self-care (01) ==
PROVIDERS: Emergency Provider Emergency Medicine; PCP Internal Medicine; Visit Provider Emergency Medicine
DX: J06.9 Acute upper respiratory infection, unspecified (principal); J44.9 Chronic obstructive pulmonary disease, unspecified; F17.210 Nicotine dependence, cigarettes, uncomplicated; R05.9 Cough, unspecified
CPT/HCPCS: 71046; 87631; 99282